=== PATIENT | female | born 1990 | race African-American/Black ===

== ENCOUNTER 2016-08-21 00:10 | Emergency (ER) | payer MEDICAID ==
[~2016-08-21] VITALS: Ht 167.6 cm; Wt 201.0 kg
[~2016-08-21 00:10] MED LIST: ALBU8.5H3 INH; ALBU8.5H5 INH; GUAI118L94 PO; LORA10TA3 PO; NASO17 NASAL; PRED50TA PO
[2016-08-21 00:26] VITALS: Ht 167.6 cm; Wt 201.0 kg
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
[2016-08-21] MEDS ORDERED: IBUP-1542 PO (05:51)
--- NOTE | 2016-08-21 06:05 | RADRPT ---
PROCEDURE: Thoracic spine. CLINICAL INDICATION: Back pain. TECHNIQUE: 2 views including AP and lateral views were obtained. Study is limited by patient's bod y habitus. COMPARISON: 07/01/2014. FINDINGS: There is no acute fracture or subluxation. Thoracic vertebral body heights and alignment are within normal limits. Intervertebral disk spaces are within normal limits. IMPRESSION: No evidence of fracture or subluxation. Study limited by patient's body habitus. .Shreyas Chilel MD, Date Time Electronically viewed and signed by .Shreyas Chilel MD, on 08/21/2016 06:04 .T/
--- NOTE | 2016-08-21 06:06 | RADRPT ---
PROCEDURE: Lumbar spine. CLINICAL INDICATION: Low back pain. TECHNIQUE: 2 views including AP and lateral view of the lumbar spine were obtained. COMPARISON: None. FINDINGS: Examination is nondiagnostic due to patient's body habitus and underpenetration. IMPRESSION: Nondiagnostic study. .Shreyas Chilel MD, Date Time Electronically viewed and signed by .Shreyas Chilel MD, on 08/21/2016 06:05 .T/
[2016-08-21 06:24] VITALS: BP 124/88
== END 2016-08-21 06:25 | disposition home or self-care (01) ==
LOC: FTE 00:10
DX: S39.92XA Unspecified injury of lower back, initial encounter (principal); S19.9XXA Unspecified injury of neck, initial encounter; J45.909 Unspecified asthma, uncomplicated; E66.9 Obesity, unspecified; V49.40XA Driver injured in collision with unspecified motor vehicles in traffic accident, initial encounter; Z68.45 Body mass index [BMI] 70 or greater, adult
CPT/HCPCS: 72072; 72100; 72125; Z7502

== ENCOUNTER 2018-02-26 00:54 | Emergency (ER) | payer SELFPAY ==
[~2018-02-26] VITALS: Ht 167.6 cm; Wt 210.8 kg
[~2018-02-26 00:54] MED LIST changes: -ALBU8.5H3 INH; +ALBU8.5H8 INH; +IBUP-1542 PO
[2018-02-26 01:27] VITALS: BP 123/73; PULSE 91; RESP 18; Ht 167.6 cm; Wt 210.8 kg
[2018-02-26] MEDS ORDERED: MED4DP PO (01:56)
[2018-02-26] MEDS ORDERED: IBUP800T48 PO (01:56)
[2018-02-26] MEDS ORDERED: AMOX1TAB10 PO (01:56)
[2018-02-26] MEDS ORDERED: IBUPROFEN 800 MG TAB PO ONE (02:00)
[2018-02-26] MEDS ORDERED: DEXAMETHASONE 10 MG/ML 1 ML INJ PO ONE (02:00)
--- NOTE | 2018-02-26 02:30 | ERD ---
ER Documentation Chief Complaint Chief Complaint flu-liked symptoms (sore throat,cough&colds) x 2weeks HPI 27-year-old female presenting with sore throat runny nose and cough times 2 weeks. Patient states that her symptoms have not been improving. She feels that she has something stuck in her throat but denies any shortness of breath or chest pain. Denies any neck pain or pain with rotational movements. Denies other medical problems. NKDA. Surgical history denies. Social history denies ROS All systems reviewed and are negative except as per history of present illness. Medications Home Meds Active Scripts Ibuprofen* (Motrin*) 800 Mg Tab, 800 MG PO Q6, #30 TAB Prov:SHAHAB DAVIS PA-C 02/26/18 Amoxicillin/Potassium Clav (Amox-Clav 875-125 mg Tablet) 875-125 mg Tab, 1 TAB PO BID for 7 Days, #14 TAB Prov:SHAHAB DAVIS PA-C 02/26/18 Methylprednisolone* (Medrol* DOSE PACK) 4 Mg/Dose-Pack Tab.ds.pk, 4 MG PO . DIRECTED, #1 PACKET Prov:SHAHAB DAVIS PA-C 02/26/18 Ibuprofen* (Motrin*) 600 Mg Tab, 600 MG PO Q6H PRN for PAIN AND OR ELEVATED TEMP, #30 TAB Prov:UMER VINCENT MD 08/21/16 Prednisone* (Prednisone*) 50 Mg Tablet, 50 MG PO DAILY for 5 Days, TAB Prov:NAZ MARIEE NP 02/14/15 Guaifenesin-Codeine Phosphate* (Guaifenesin* with Codeine Liq) 120 Ml Liquid, 5 ML PO Q4H for COUGH, #60 ML Prov:NAZ MARIEE NP 02/14/15 Albuterol Sulfate* (Albuterol Sulfate* HFA) 8.5 Gm Hfa.aer.ad, 2 PUFF INH Q4 PRN for SHORTNESS OF BREATH, #1 EA Prov:NAZ MARIEE NP 02/14/15 Albuterol Sulfate* (Proair HFA*) 8.5 Gm Hfa.aer.ad, 2 PUFF INH Q4, #1 INH Prov:GROVER AIKEN PA-C 08/25/14 Mometasone Furoate* (Nasonex*) 50 Mcg/[place] - 17 Gm [place].pump, 1 SPRAY NASAL BID, #1 EA Prov:GROVER AIKEN PA-C 08/25/14 Loratadine* (Loratadine*) 10 Mg Tablet, 10 MG PO DAILY, #30 TAB Prov:GROVER AIKEN PA-C 08/25/14 Allergies Allergies: Coded Allergies: No Known Allergy (Unverified , 08/25/14) PMhx/Soc History of Surgery: No Anesthesia Reaction: No Hx Neurological Disorder: No Hx Respiratory Disorders: Yes (asthma) Hx Cardiac Disorders: No Hx Psychiatric Problems: No Hx Miscellaneous Medical Probl: No Hx Alcohol Use: No Hx Substance Use: No Hx Tobacco Use: No FmHx Family History: No diabetes, No coronary disease, No other Physical Exam Vitals Vital Signs Date Temp Pulse Resp B/P (MAP) Pulse Ox O2 O2 Flow FiO2 Time Delivery Rate 02/26/18 98.2 91 18 123/73 94 01:27 (90) Physical Exam GENERAL: The patient is well-appearing, well-nourished, in no acute distress HEENT: Atraumatic. Conjunctivae are pink. Pupils equal, round, and reactive to light. There is no scleral icterus. Tympanic membranes clear bilaterally. Oropharynx clear. NECK: C-spine is soft and supple. There is no meningismus. There is no cervical lymphadenopathy. CHEST: Clear to auscultation bilaterally. There are no rales, wheezes or rhonchi. HEART: Regular rate and rhythm. No murmurs, clicks, rubs or gallops. No S3 or S4. Results 24 hrs Current Medications Medications Dose Sig/Anthony Start Time Status Last (Trade) Ordered Route PRN Stop Time Admin Dose Reason Admin 10 mg ONCE ONCE 02/26/18 DC 02/26/18 Dexamethasone PO 02:00 02/26/18 02:08 (Decadron) 02:01 Ibuprofen 800 mg ONCE ONCE 02/26/18 DC 02/26/18 (Motrin) PO 02:00 02/26/18 02:08 02:01 Procedures/MDM ER course: Ibuprofen and Decadron given ED. MDM: 27-year-old female presenting with sore throat. Patient's exam is non- concerning. Patient does have some exudate noted of the tonsils so we will treat with antibiotics and steroids. I have low suspicion for peritonsillar retropharyngeal abscess. I have low suspicion for retained foreign body or airway compromise. Patient is discharged stricter precautions and told to follow-up with primary care within 1-2 days for close evaluation. Patient is told symptoms change or worsen to immediately return to ER. All questions answered at discharge Departure Diagnosis: Primary Impression: Upper respiratory infection Condition: Stable Patient Instructions: Self-Care for Sore Throats Referrals: [facility] YOU HAVE RECEIVED A MEDICAL SCREENING EXAM AND THE RESULTS INDICATE THAT YOU DO NOT HAVE A CONDITION THAT REQUIRES URGENT TREATMENT IN THE EMERGENCY DEPARTMENT. FURTHER EVALUATION AND TREATMENT OF YOUR CONDITION CAN WAIT UNTIL YOU ARE SEEN IN YOUR DOCTORS OFFICE WITHIN THE NEXT 1-2 DAYS. IT IS YOUR RESPONSIBILITY TO MAKE AN APPOINTMENT FOR FOLOW-UP CARE. IF YOU HAVE A PRIMARY DOCTOR --you should call your primary doctor and schedule an appointment IF YOU DO NOT HAVE A PRIMARY DOCTOR YOU CAN CALL OUR PHYSICIAN REFERRAL HOTLINE AT IF YOU CAN NOT AFFORD TO SEE A PHYSICIAN YOU CAN CHOSE FROM THE FOLLOWING [facility] [address] [facility]. [facility] [address] [facility]. [facility] [address] [facility] [facility] [address] [facility]. [facility] [address] [facility]. [facility]. [address] [place] Additional Instructions: FOLLOW UP WITH YOUR PRIMARY CARE PHYSICIAN TOMORROW.Return to this facility if you are not improving as expected. SHAHAB DAVIS PA-C Feb 26, 2018 02:30
== END 2018-02-26 02:28 | disposition home or self-care (01) ==
LOC: FTE 00:54
DX: J06.9 Acute upper respiratory infection, unspecified (principal); J45.909 Unspecified asthma, uncomplicated
CPT/HCPCS: 99283; J1100